=== PATIENT | female | born 1995 | race Caucasian/White ===

== ENCOUNTER 2023-11-29 06:24 | Day surgery (SDC) | payer BC, SELFPAY ==
[2023-11-24 13:42] VITALS: BMI 28.4
[2023-11-24 14:30] LABS: Urine Albumin Negative (Neg - Trace); Urine Bilirubin Negative (Negative); Urine Character Clear (Clear); Urine Color Yellow; Urine Glucose Negative (Negative); Urine Ketone Negative (Negative); Urine Leukocyte Trace (Negative); Urine Nitrite Negative (Negative); Urine Occult Blood Negative (Negative); Urine Urobilinogen 2+ (Neg - 1+)
[2023-11-24 14:43] LABS: Urine Mucus Few; Urine Squamous Cell 21-25 /LPF (Few)
[2023-11-24 14:44] LABS: Urine Bacteria Many (Negative); Urine Red Blood Cell 0-2 /HPF (0-2); Urine White Cell 0-2 /HPF (0-5)
--- NOTE | 2023-11-24 15:30 | PTCARENOTE ---
Patients 11/23 UA abnormal, Radha @ Dr. Andrade office notified.
--- NOTE | 2023-11-25 13:37 | PTCARENOTE ---
Office notified of Abn UA, UA/C&S results.
[2023-11-29 08:20] VITALS: BP 99/70
[2023-11-29 08:35] VITALS: BMI 28.4
[2023-11-29] MEDS: NORMOSOL-R 1000 IV (08:47)
[2023-11-29 09:52] VITALS: BP 90/62
[2023-11-29 09:58] VITALS: BP 92/66
[2023-11-29 10:00] VITALS: BP 94/69
[2023-11-29 10:15] VITALS: BP 94/66
[2023-11-29] MEDS: Pyridium 200 MG PO (10:19)
[2023-11-29 10:30] VITALS: BP 97/59
== END 2023-11-29 11:05 | disposition home or self-care (01) ==
LOC: SDS 06:24
PROVIDERS: ATTENDING PHYSICIAN Urology; FAMILY PHYSICIAN Internal Medicine Addiction Medicine
DX: N31.9 Neuromuscular dysfunction of bladder, unspecified (principal)
CPT/HCPCS: 52287; J0585; 36415; 81003; 81015; 87077; 87086; 87186

== ENCOUNTER 2024-02-28 06:45 | Day surgery (SDC) | payer BC, SELFPAY ==
[2024-02-25 14:42] LABS: Urine Albumin Negative (Neg - Trace); Urine Bilirubin 1+ (Negative); Urine Character Slightly Cloudy (Clear); Urine Color Yellow; Urine Glucose Negative (Negative); Urine Ketone Trace (Negative); Urine Leukocyte Trace (Negative); Urine Nitrite Negative (Negative); Urine Occult Blood Negative (Negative); Urine Urobilinogen 2+ (Neg - 1+)
[2024-02-25 14:53] LABS: Urine Bacteria Many (Negative); Urine Red Blood Cell None Seen /HPF (0-2)
--- NOTE | 2024-02-25 15:31 | PTCARENOTE ---
Patients 02/24 ANTONIO armas- Radha @ Dr. Woodson office notified
[2024-02-28] VITALS (8 sets, daily range): BP systolic 85–110; BP diastolic 47–68; BMI 28.7
== END 2024-02-28 10:44 | disposition home or self-care (01) ==
LOC: SDS 06:45
PROVIDERS: ATTENDING PHYSICIAN Urology
DX: N39.41 Urge incontinence (principal); N31.9 Neuromuscular dysfunction of bladder, unspecified
CPT/HCPCS: 52287; 36415; 81003; 81015; 87077; 87086; 87186; J0585

== ENCOUNTER 2024-05-22 06:42 | Day surgery (SDC) | payer BC, SELFPAY ==
[2024-05-12 14:01] VITALS: BMI 30.6
[2024-05-12 14:17] LABS: Urine Albumin Negative (Neg - Trace); Urine Bilirubin Negative (Negative); Urine Character Slightly Cloudy (Clear); Urine Color Yellow; Urine Glucose Negative (Negative); Urine Ketone Negative (Negative); Urine Leukocyte Negative (Negative); Urine Nitrite Positive (Negative); Urine Occult Blood Negative (Negative); Urine Urobilinogen 1+ (Neg - 1+); Urine pH 6.5 (5.0-9.0)
[2024-05-12 14:30] LABS: Urine Bacteria Many (Negative); Urine Red Blood Cell 0-2 /HPF (0-2)
--- NOTE | 2024-05-17 13:35 | PTCARENOTE ---
Abnormal urine specimen collected on 05/12/24Radha at Dr. Baugh's office was notified.
[2024-05-22 08:21] VITALS: BMI 29.3
[2024-05-22 08:22] VITALS: BMI 29.3
[2024-05-22 08:23] VITALS: BP 99/64
[2024-05-22 10:07] VITALS: BP 99/66
[2024-05-22 10:15] VITALS: BP 101/68
[2024-05-22] MEDS: Pyridium 200 MG PO (10:30)
[2024-05-22 10:31] VITALS: BP 117/67
[2024-05-22 10:43] VITALS: BP 96/63
== END 2024-05-22 11:30 | disposition home or self-care (01) ==
LOC: SDS 06:42
PROVIDERS: ATTENDING PHYSICIAN Urology
PROC: 3E0K8GC Introduction of Other Therapeutic Substance into Genitourinary Tract, Via Natural or Artificial Opening Endoscopic (ICD-10-PCS; 2024-05-22)
DX: N31.9 Neuromuscular dysfunction of bladder, unspecified (principal); N39.41 Urge incontinence
CPT/HCPCS: 52287; 36415; 81003; 81015; 87077; 87086; 87186; J0585

== ENCOUNTER → 2024-08-11 09:00 | Outpatient (REF) | payer BC, SELFPAY ==
[2024-08-11 14:04] VITALS: BMI 28.2
[2024-08-11 14:32] LABS: Urine Albumin Trace (Neg - Trace); Urine Bilirubin Negative (Negative); Urine Character Very Cloudy (Clear); Urine Glucose Negative (Negative); Urine Ketone Trace (Negative); Urine Leukocyte 2+ (Negative); Urine Nitrite Negative (Negative); Urine Occult Blood 2+ (Negative); Urine Urobilinogen Negative (Neg - 1+)
[2024-08-11 14:41] LABS: Urine Color Orange
[2024-08-11 15:14] LABS: Urine Bacteria Many (Negative); Urine Red Blood Cell 0-2 /HPF (0-2); Urine White Cell 0-2 /HPF (0-5)
--- NOTE | 2024-08-17 09:07 | SUR.OPER ---
Patients 08/11 UA/CX abnormal, Radha @ Dr. Andrade office notified
== END ==
LOC: REG 09:00
PROVIDERS: ATTENDING PHYSICIAN Urology; FAMILY PHYSICIAN Internal Medicine Addiction Medicine
DX: N31.9 Neuromuscular dysfunction of bladder, unspecified (principal)
CPT/HCPCS: 36415; 81003; 81015; 87077; 87086; 87186; J0585